=== PATIENT | female | born 1965 | race Caucasian/White ===

== ENCOUNTER 2020-08-25 09:26 | Outpatient (CLI) | payer OTHER, SELFPAY ==
--- NOTE | ~2020-08-25 | MM_ITS ---
EXAMINATION: MM screening [facility] BI w osman HISTORY: Screening mammogram TECHNIQUE: Craniocaudal and mediolateral oblique 3-D tomosynthesis images were obtained and synthetic 2-D images were generated. CAD analysis was submitted and interpreted. COMPARISON: 07/30/2019, 05/22/2018, 03/23/2017 and lateral digital screening mammogram examinations BREAST PARENCHYMAL COMPOSITION: There are scattered areas of fibroglandular density. FINDINGS: There is no evidence of suspicious mass, calcification, or architectural distortion to sugg est malignancy in either breast. There has been no suspicious interval change. IMPRESSION: 1. No mammographic evidence of malignancy. 2. Recommend routine screening mammography in one year. BI-RADS Category 1: Negative Reviewed, dictated and finalized at location A. OLEER PACKER
== END 2020-08-25 09:27 | disposition home or self-care (01) ==
PROVIDERS: PCP Family Medicine; Visit Provider Family Medicine
DX: Z12.31 Encounter for screening mammogram for malignant neoplasm of breast (principal)
CPT/HCPCS: 77063; 77067

== ENCOUNTER 2021-10-03 07:16 | Outpatient (CLI) | payer OTHER, SELFPAY ==
--- NOTE | ~2021-10-03 | MM_ITS ---
EXAMINATION: MM screening [facility] BI w osman HISTORY: Screening mammogram TECHNIQUE: Craniocaudal and mediolateral oblique 3-D tomosynthesis images were obtained and synthetic 2-D images were generated. CAD analysis was submitted and interpreted. COMPARISON: 08/25/2020, 06/30/2019, 05/22/2018 BREAST PARENCHYMAL COMPOSITION: There are scattered areas of fibroglandular density. FINDINGS: There is no evidence of suspicious mass, calcification, or architectural distortion to sugg est malignancy in either breast. There has been no suspicious interval change. IMPRESSION: 1. No mammographic evidence of malignancy. 2. Recommend routine screening mammography in one year. BI-RADS Category 1: Negative Reviewed, dictated and finalized at location A. FILLING ROOM SWEEPER
== END 2021-10-03 07:17 | disposition home or self-care (01) ==
LOC: ANHIMG 07:18
PROVIDERS: PCP Family Medicine; Visit Provider Family Medicine
DX: Z12.31 Encounter for screening mammogram for malignant neoplasm of breast (principal)
CPT/HCPCS: 77063; 77067

== ENCOUNTER 2023-02-02 10:02 | Outpatient (CLI) | payer OTHER, SELFPAY ==
--- NOTE | ~2023-02-02 | MM_ITS ---
EXAMINATION: MM screening [facility] BI w osman HISTORY: Screening mammogram TECHNIQUE: Craniocaudal and mediolateral oblique 3-D tomosynthesis images were obtained and synthetic 2-D images were generated. CAD analysis was submitted and interpreted. COMPARISON: 10/03/2020, 08/25/2020, 07/30/2019 BREAST PARENCHYMAL COMPOSITION: There are scattered areas of fibroglandular density. FINDINGS: No suspicious mass, calcification, or architectural distortion are identified in either cee ast to suggest malignancy. There has been no suspicious interval change. IMPRESSION: 1. No mammographic evidence of malignancy. 2. Recommend routine screening mammography in one year. BI-RADS Category 1: Negative Reviewed, dictated and finalized at location A.
== END 2023-02-02 10:03 | disposition home or self-care (01) ==
LOC: ANHIMG 10:06
PROVIDERS: PCP Family Medicine; Visit Provider Family Medicine
DX: Z12.31 Encounter for screening mammogram for malignant neoplasm of breast (principal)
CPT/HCPCS: 77063; 77067

== ENCOUNTER 2024-02-04 07:16 | Outpatient (CLI) | payer BC, SELFPAY ==
--- NOTE | ~2024-02-04 | MM_ITS ---
EXAMINATION: MM screening [facility] BI w osman HISTORY: Screening mammogram TECHNIQUE: Craniocaudal and mediolateral oblique 3-D tomosynthesis images were obtained and synthetic 2-D images were generated. CAD analysis was submitted and interpreted. COMPARISON: 02/02/2023, 10/03/2021 bilateral screening mammogram examinations BREAST PARENCHYMAL COMPOSITION: There are scattered areas of fibroglandular density. FINDINGS: There is no evidence of suspicious mass, calcification, or architectural distortion to sugg est malignancy in either breast. There has been no suspicious interval change. IMPRESSION: 1. No mammographic evidence of malignancy. 2. Recommend routine screening mammography in one year. BI-RADS Category 1: Negative Reviewed, dictated and finalized at location B.
== END 2024-02-04 07:17 | disposition home or self-care (01) ==
LOC: ANHIMG 07:21
PROVIDERS: PCP Family Medicine; Visit Provider Family Medicine
DX: Z12.31 Encounter for screening mammogram for malignant neoplasm of breast (principal)
CPT/HCPCS: 77063; 77067

== ENCOUNTER 2024-03-03 17:08 | Outpatient (CLI) | payer BC, SELFPAY ==
--- NOTE | ~2024-03-03 | XR_ITS ---
EXAM: XR hip RT 2V w AP pelvis DATE: 03/03/2024 17:24 HISTORY: M25.559 - Pain in unspecified X 1 YEAR . COMPARISON: None available. FINDINGS: Normal mineralization. No fracture or dislocation. No lytic or blastic lesion. Mild bilate ral superior hip joint space narrowing and subchondral sclerosis. Minimal pelvic enthesopathy. No ero sharlene or periosteal change. Soft tissues within normal limits. Pelvic phleboliths. IMPRESSION: Mild bilateral hip osteoarthritic arthritis. Reviewed, dictated and finalized at location K.
== END 2024-03-03 17:09 | disposition home or self-care (01) ==
PROVIDERS: PCP Family Medicine; Visit Provider Family Medicine
DX: M16.0 Bilateral primary osteoarthritis of hip (principal)
CPT/HCPCS: 73502

== ENCOUNTER 2024-09-19 09:44 | Outpatient (CLI) | payer BC, SELFPAY ==
[2024-09-19 18:12] LABS: Basophils Absolute Auto 0.1 K/mm3 (0.0-0.1); Eosinophils Absolute Auto 0.2 K/mm3 (0-0.3); Eosinophils Percent Auto 2.1 % (0-4.4); Hematocrit 44.9 % (37.0-47.0); Hemoglobin 14.2 g/dL (12.0-15.0); Immature Granulocyte Absolute 0.03 K/mm3 (0.00-0.031); Immature Granulocyte Percent A 0.4 % (0-0.5); Lymphocytes Absolute Auto 2.45 K/mm3 (0.9-3.2); Lymphocytes Percent Auto 30.8 % (18.3-44.2); Mean Corpuscular HGB Conc 31.6 g/dl (32-36); Mean Corpuscular Hemoglobin 29.8 pg (26-34); Mean Corpuscular Volume 94.3 fl (80-100); Mean Platelet Volume 11.5 fl (7.4-10.4); Monocytes Absolute Auto 0.5 K/mm3 (0.1-0.6); Monocytes Percent Auto 6.2 % (2.6-8.5); Neutrophils Absolute Auto 4.7 K/mm3 (1.3-6.7); Neutrophils Percent Auto 59.5 % (45.5-73.1); Platelet Count Result 314 k/mm3 (150-375); Red Blood Count 4.76 M/mm3 (4.2-5.4); Red Cell Distribution Width 13.4 % (11.5-14.5)
[2024-09-19 18:22] LABS: Alanine Aminotransferase 25 U/L (6-35); Albumin Level 4.4 g/dL (3.5-5.1); Alkaline Phosphatase 106 U/L (38-126); Anion Gap 6 mmol/L (4-12); Aspartate Amino Transferase 55 U/L (14-36); Bilirubin,Total 0.6 mg/dL (0.2-1.3); Blood Urea Nitrogen 23 mg/dL (7-17); Calcium 9.5 mg/dL (8.4-10.2); Carbon Dioxide 26 mmol/L (22-30); Chloride 107 mmol/L (98-107); Cholesterol 216 mg/dL (0-200); Estimated Glomerular Filt Rate > 60; Glucose 81 mg/dL (65-110); HDL Direct 58 mg/dL; Potassium 4.1 mmol/L (3.4-5.0); Sodium 139 mmol/L (137-145); Triglycerides 101 mg/dL (<150)
[2024-09-19 18:33] LABS: LDL Cholesterol Direct 116 mg/dL
[2024-09-19 18:34] LABS: T4 Thyroxine 7.53 ug/dL (5.53-11.0)
[2024-09-19 19:14] LABS: Vitamin B12 > 1000.0 pg/mL (239-931)
[2024-09-20 20:14] LABS: FSH 64.2 mIU/mL; LH 42.9 mIU/mL
== END 2024-09-19 09:45 | disposition home or self-care (01) ==
LOC: ANHGOSHLAB 09:45
PROVIDERS: PCP Family Medicine; Visit Provider Family Medicine
DX: R53.83 Other fatigue (principal); E53.8 Deficiency of other specified B group vitamins; R76.8 Other specified abnormal immunological findings in serum; E55.9 Vitamin D deficiency, unspecified
CPT/HCPCS: 36415; 80053; 80061; 82306; 82607; 83001; 83002; 84436; 85025

== ENCOUNTER 2025-01-20 03:15 | Day surgery (SDC) | payer BC, SELFPAY ==
[2025-01-09 08:21] VITALS: BMI 30.1
--- OUTSIDE RECORDS SUMMARY | 2025-01-20 03:18 | XMS_ITS | Encounter Summary ---
Author Organization [facility] Address [address] [facility] [facility] [place] [address] Care Team Providers Care Driver Recruiter Name Role Phone Moises Richard MD Primary Care Provider [phone] Encounter Details Date Type Department Care Team (Late st Contact Info) Description 12/06/2018 Lab Requisition [facility] Lab [address] [facility] [place] [address] Ayesha Queen MD [address] [facility] [address] [place] [address] Social History Tobacco Use Types Packs/Day Years Used Date Smoking Tobacco: Never Assessed Comments Unknown Sex and Gender Information Value Date Recorded Sex Assigned at Not on file Legal Sex Female 10:21 AM SECTION CREWS ACTIVITIES CLERK Gender Identity Not on file Sexual Orientation Not on file documented as of this encounter Plan of Treatment Not on file documented as of this encounter Procedures Procedure Name Priority Date/Time Associated Diagnosis Comments DERMATOPATHOLOGY Routine 12/05/2018 12:0 0 AM SECTION CREWS ACTIVITIES CLERK documented in this encounter Results * DERMATOPATHOLOGY (12/05/2018 12:00 AM SECTION CREWS ACTIVITIES CLERK) Case Report Dermatopathology Report Case: [id number] Authorizing Provider: Ayesha Queen MD Collected: 12/05/2018 12:00 AM Pathologist: Danielle Matute MD Received: 12/06/2018 12:01 PM Specimens: A) - Skin, right cheek B) - Skin, mid back 9 3:03 PM CDT DERMATOPATHOLOGY LABORATORY Final Diagnosis Specimen A. SKIN, right cheek: INTRADERMAL MELANOCYTIC NEVUS (D22.39) Specimen B. SKIN, mid back: INTRADERMAL MELANOCYTIC NEVUS (D22.5) 9 3:03 PM CDT DERMATOPATHOLOGY LABORATORY Clinical History A: R/O BCC vs nevus. Cane Beds papule. B: Irritated nevus R/O atypia. Irreg color, brown papule. Family H/O MM. 3:03 PM [facility] DERMATOPATHOLOGY LABORATORY Gross Description Specimen A: Received is one formalin filled container labeled with the patient's name and designated right cheek. The specimen consists of a shave measuring [id number]. Jar 0. Specimen B: Received is one formalin filled container labeled with the patient's name and designated mid back. The specimen consists of a shave measuring [id number]. Jar 0. 3:03 PM [facility] DERMATOPATHOLOGY LABORATORY Microscopic Description Specimen A. SKIN, right cheek: There are nests of cytologically bland melanocytes within the dermis that mature with depth. Specimen B. SKIN, mid back: There are nests of cytologically bland melanocytes within the dermis that mature with depth. 3:03 PM [facility] DERMATOPATHOLOGY LABORATORY Disclaimer An external and internal positive and negative controls are appropriate for the histochemical, immunohistochemical and immunofluorescence stain(s) in this case (if any), except where stated explicitly. The performance characteristics of the stain(s) cited in this report were developed and its performance characteristic determined by the Dermatopathology Laboratory at [facility], directed by Dr. Kristen Sanders. These tests need not be, and therefore are not, approved by the [place] Food and Drug Administration. The tests are used for clinical purposes. Billing Codes Specimen Charges Stain Charges 99710 [id number] 1 1 3:03 PM [facility] DERMATOPATHOLOGY LABORATORY Embedded Images 3:03 PM [facility] DERMATOPATHOLOGY LABORATORY Pathology/Cytology TISSUE SPECIMEN FROM SKIN / Unknown 12/05/2018 12/06/2018 12:01 PM SECTION CREWS ACTIVITIES CLERK Miscellaneous samples (specimen) TISSUE SPECIMEN FROM SKIN / Unknown 12/05/2018 12/06/2018 12:01 PM SECTION CREWS ACTIVITIES CLERK us Ayesha Queen MD LAB - PATHOLOGY/CYTOLOGY ORD ERABLES Final Result DERMATOPATHOLOGY LABORATORY [facility] - Department of Dermatology [address] [place] [address], [facility] [phone] documented in this encounter Visit Diagnoses Not on filedocumented in this encounter Care Teams Driver Recruiter Relationship Specialty Start Date End Date Moises Richard MD [facility] [place] [address] PCP - General 12/05/18 documented as of this encounter
--- OUTSIDE RECORDS SUMMARY | 2025-01-20 03:18 | XMS_ITS | Clinical Summary ---
Author Organization [facility] Address [address] [place] [address] Care Team Providers Care Dry Wall Plasterer Name Role Phone Moises Richard MD Primary Care Provider [phone]- [phone] Source Comments [facility] [employer],non-owned Affiliates and Associated Physician Practices is amultiple site organization consisting of ambulatory clinics and hospital sitesin [place], [place], [place] and [place]. This disclosure is being madepursuant to the Care Everywhere program and may not contain all information available regarding this patient. Last updated 18.[facility] [employer] Social History Tobacco Use Types Packs/Day Years Used Date Smoking Tobacco: Never Assessed Comments Unknown Sex and Gender Information Value Date Recorded Sex Assigned at Not on file Legal Sex Female 10:21 AM PRACTICING UROLOGIST Gender Identity Not on file Sexual Orientation Not on file Plan of Treatment Health Maintenance Due Date Last Done Comments COLOGUARD (AGES 45-75) - COL ON CA SCREENING 1967 COLON MONITORING 1967 COLONOSCOPY - COLON CA SCREENING 1967 CT COLONOGRAPHY - COLON CA SCREENING 1967 Colorectal Cancer Screening 1967 FIT - COLON CA SCREENING 1967 FLEX SIG - COLON CA SCREENING 1967 LIPID TESTING 1967 MAMMOGRAM 1967 PAP SMEAR 1967 HIV SCREENING 1982 HEPATITIS C SCREENING 07/15/1985 DTAP/TDAP/TD VACCINES (1 - Tdap) 1986 HEPATITIS B VACCINE (1 of 3 - 19+ 3-dose series) 1986 PNEUMOCOCCAL VACCINE 50+ (1 of 1 - PCV) 2017 ZOSTER VACCINE (1 of 2) 2017 COVID-19 VACCINE (2023-2 5 season) 2024 DEPRESSION SCREENING 10/01/2024 INFLUENZA VACCINE (Season Ended) 2025 HIB VACCINE Aged Out No longer eligi ble based on patient's age to complete this topic HPV VACCINE Aged Out No longer eligi ble based on patient's age to complete this topic MENINGOCOCCAL (Group B) VACC INE SHARED DECISION-MAKING Aged Out No longer eligibl e based on patient's age to complete this topic MENINGOCOCCAL GROUPS A/C/Y/W VACCINE Aged Out No longer eligible b ased on patient's age to complete this topic PNEUMOCOCCAL VACCINE Aged Out No long er eligible based on patient's age to complete this topic Insurance [facility] Care Teams Dry Wall Plasterer Relationship Specialty Start Date End Date Moises Richard MD [address] [place] [address] PCP - General 12/05/18
--- OUTSIDE RECORDS SUMMARY | 2025-01-20 03:18 | XMS_ITS | Clinical Summary ---
Author Organization [facility] Address [address], [address] [address] Phone Care Team Providers Care Vice Chairman Name Role Phone Moises Richard MD Primary Care Provider [phone]- [phone] Juan Mancuso DO Unavailable [phone] Allergies Active Allergy Reactions Criticality Noted Date Comments Fluconazole Unknown 01/21/2016 Erythromycin Unknown 01/21/2016 Morphine Unknown 01/21/2016 Sulfa Antibiotics Unknown 01/21/2016 Medications ibuprofen (MOTRIN) 600 MG Tablet Take 600 mg by mouth as needed. Active Pseudoephedrine HCl (SUDAFED PO) Take by mouth as needed. Active ranitidine (ZANTAC) 300 MG Tablet Take 300 mg by mouth as needed for Heartburn. Active Social History Tobacco Use Types Packs/Day Years Used Date Smoking Tobacco: Never Assessed Comments Unknown Sex and Gender Information Value Date Recorded Sex Assigned at Not on file Legal Sex Female 5:39 PM CDT Gender Identity Not on file Sexual Orientation Not on file Plan of Treatment Health Maintenance Due Date Last Done Comments Hepatitis C Virus (HCV) Screening 1967 TdaP Immunization 1967 Hepatitis B Immunization (1 of 3 - 19+ 3-dose series) 1986 Pap Smear 1988 Cervical Cancer Screening (CCS) 1997 HPV/Cotest 1997 Cologuard 2017 Immunochemical Fecal Occult Blood 2017 Mammogram 2017 Pneumococcal Immunization (5 0+ years) (1 of 1 - PCV) 2017 Zoster Immunization (1 of 2) 2017 Influenza Immunization (#1) 2024 SARS-COV-2 Immunization ( season) 2024 Colonoscopy 01/19/2026 01/20/2016 Colorectal Cancer Screening 01/19/2026 Respiratory Syncytial Virus (RSV) Immunization (Adult) (1 - 1-dose 75+ series) 2042 01/20/2016 Meningococcal Immunization (ACWY) Aged Out No longer eligible based on patient's age to complete this topic Pneumococcal Immunization Combined Aged Out No longer eligible based on patient's age to complete this topic Rotavirus Immunization Aged Out No lo nger eligible based on patient's age to complete this topic Procedures Procedure Name Priority Date/Time Associated Diagnosis Comments COLONOSCOPY Routine 01/20/2016 from Last 3 Months or Most Recently Relevant to Health Maintenance Results * HM COLONOSCOPY (01/20/2016) us Moises Richard MD PROCEDURE/MINOR SURGICAL O RDERABLES Final Result from Last 3 Months or Most Recently Relevant to Health Maintenance Care Teams Vice Chairman Relationship Specialty Start Date End Date Moises Richard MD [address] [place] [address] [employer] [address] [place], [place] [id number] PCP - General Family Medicine 01/31/16 Juan Mancuso DO [address] [place] [address] [employer] [address] [place] [address] Gastroenterology 01/31/16
--- NOTE | 2025-01-20 06:39 | P.PNAN_ITS ---
Anes - Initial Pre Proc Eval Procedure: Operation Date: 01/20/25 07:30 Proposed Procedures p Colonoscopy - Jordy Flannery MD Date/Time: 01/20/25 06:39 Surgeon: Jordy Flannery MD Pre Op Diagnosis: screening malignant neoplasm of colon Patient Data Age: 59 Gender: F Height: 1.6 m Weight: 74.3 kg Allergies Allergy/AdvReac Type Severity Reaction Status Date / Time adhesive Allergy Severe BLISTERS Verified 01/20/25 06:36 TO TAPE avocado Allergy Severe Hives Verified 01/20/25 06:36 erythromycin base Allergy Unknown Unknown Verified 01/20/25 06:36 fluconazole Allergy Unknown allergic Verified 01/20/25 06:36 gluten Allergy Unknown stomach Verified 01/20/25 06:36 pains morphine Allergy Unknown Unknown Verified 01/20/25 06:36 Sulfa (Sulfonamide Allergy Unknown Unknown Verified 01/20/25 06:36 Antibiotics) sulfanilamide Allergy Unknown Unknown Verified 01/20/25 06:36 Home Medications ?Medication ?Instructions ?Recorded ?Confirmed ?Type cholecalciferol (vitamin D3) 25 25 mcg PO DAILY 08/24/21 01/20/25 History mcg (1,000 unit) capsule mecobalamin (vitamin B12) 1,000 1,000 mcg sublingual DAILY 08/24/21 01/20/25 History mcg disintegrating tablet,sublingual Patient hx anesthesia problems: none Family hx anesthesia problems: none Results Review: All pre-operative results and documents have been reviewed as part of the pre- operative evaluation. [facility] Past Medical History Medical History (Updated 01/20/25 @ 06:40 by Kareem Reese MD) MICHELLE positive neg JACQUES BPV (benign positional vertigo) Surgical History Surgical History S/P carpal tunnel release left H/O: hysterectomy (~2008) has Ovaries History of (~1998) History of (~2000) S/P cholecystectomy (~12/17/94) Family History Family History Mother Family history of thyroid disease Hypertension Family history of cardiovascular disease Father Diabetes mellitus Hypertension Family history of cardiovascular disease Sibling Diabetes mellitus Depression Hypertension Family history of malignant melanoma Hudson's disease Anxiety Cerebrovascular accident History of high cholesterol Grandparent Family history of malignant neoplasm Family history of malignant melanoma Other Family history of alcoholism Family history of arthritis Family history of malignant neoplasm of bone Family history of mental disorder Social History Social History Smoking status: Never smoker Alcohol intake: never Substance use: never Substance use type: does not use Lack of Transportation: No Lack of Food: Never True Current Housing: I Have Housing Concerned About Future Housing: No Difficulty Paying Gas/Electric Bills: No Difficulty Paying for Meds: No Currently Unemployed: No Education: Master's Degree or Higher Difficulty w/ Childcare or Family Care: No Living arrangements: with family Spiritual care concerns: No Anes - Eval Final PreProcedure Day of Procedure 01/20/25 06:39 Patient weight: overweight Heart: regular rate and rhythm Lungs: clear to auscultation Airway: Mallampati scale class II Neurological: alert and oriented Last oral intake: >/= 8 hours ASA classification: II Emergent: no Anesthetic plan: proceed Anesthesia type and monitoring: general GIVS and standard monitoring Results Review: All pre-operative results and documents have been reviewed as part of the pre- operative evaluation. Informed Consent: The patient's anesthetic plan and its attendant risks and benefits were discussed with the patient/family/POA. Questions were solicited and answers provided to the satisfaction of the patient/family/POA.
[2025-01-20] MEDS: LACTATED RINGERS 1,000 ML 150 ML IV CONT (06:45)
[2025-01-20 06:52] VITALS: BP 117/67; PULSE 69; RESP 18; TEMP 36.7; O2SAT 100
--- NOTE | 2025-01-20 07:21 | PM.IMHP ---
H&P: HPI History of Present Illness Date/Time: 01/20/25 07:21 Chief Complaint: Screening colonoscopy Narrative: This is the patient's first colonoscopy. There are no GI symptoms and there is no family history of colorectal cancer. Review of Systems Review of Systems: All systems reviewed & are unremarkable except as noted in HPI and below PMFSH Past Medical History Medical History (Updated 01/20/25 @ 06:40 by Kareem Reese MD) MICHELLE positive neg JACQUES BPV (benign positional vertigo) Surgical History Surgical History S/P carpal tunnel release left H/O: hysterectomy (~2008) has Ovaries History of (~1998) History of (~2000) S/P cholecystectomy (~12/17/94) Family History Family History Mother Family history of thyroid disease Hypertension Family history of cardiovascular disease Father Diabetes mellitus Hypertension Family history of cardiovascular disease Sibling Diabetes mellitus Depression Hypertension Family history of malignant melanoma Hudson's disease Anxiety Cerebrovascular accident History of high cholesterol Grandparent Family history of malignant neoplasm Family history of malignant melanoma Other Family history of alcoholism Family history of arthritis Family history of malignant neoplasm of bone Family history of mental disorder Social History Social History Smoking status: Never smoker Alcohol intake: never Substance use: never Substance use type: does not use Lack of Transportation: No Lack of Food: Never True Current Housing: I Have Housing Concerned About Future Housing: No Difficulty Paying Gas/Electric Bills: No Difficulty Paying for Meds: No Currently Unemployed: No Education: Master's Degree or Higher Difficulty w/ Childcare or Family Care: No Living arrangements: with family Spiritual care concerns: No Meds Home Medications and Allergies Home Medications ?Medication ?Instructions ?Recorded ?Confirmed ?Type cholecalciferol (vitamin D3) 25 25 mcg PO DAILY 08/24/21 01/20/25 History mcg (1,000 unit) capsule mecobalamin (vitamin B12) 1,000 1,000 mcg sublingual DAILY 08/24/21 01/20/25 History mcg disintegrating tablet,sublingual Allergies Allergy/AdvReac Type Severity Reaction Status Date / Time adhesive Allergy Severe BLISTERS Verified 01/20/25 06:36 TO TAPE avocado Allergy Severe Hives Verified 01/20/25 06:36 erythromycin base Allergy Unknown Unknown Verified 01/20/25 06:36 fluconazole Allergy Unknown allergic Verified 01/20/25 06:36 gluten Allergy Unknown stomach Verified 01/20/25 06:36 pains morphine Allergy Unknown Unknown Verified 01/20/25 06:36 Sulfa (Sulfonamide Allergy Unknown Unknown Verified 01/20/25 06:36 Antibiotics) sulfanilamide Allergy Unknown Unknown Verified 01/20/25 06:36 Vital Signs Vital Signs - 24 hr 01/20/25 06:52 Temperature 98.0 F Pulse Rate 69 Respiratory Rate 18 Blood Pressure 117/67 Pulse Oximetry 100 Oxygen Delivery Room Air Exam Const: General: cooperative and healthy appearing Resp: Effort & Inspection: normal respiratory effort and able to speak in complete sentences Auscultation: clear to auscultation bilaterally Cardio: Rate: regular rate Rhythm: regular rhythm GI: Inspection: normal to inspection GI Palp: No No hepatosplenomegaly present Auscultation: normal bowel sounds Rectal Exam: deferred Skin: General skin exam: normal color Psych: Appearance: grossly normal Mental Status: mental status grossly normal Assessment and Plan Assessment and plan (1) Colon cancer screening: Code(s): Z12.11 - Encounter for screening for malignant neoplasm of colon Status: Acute Assessment and Plan: The patient is deemed a good candidate for the procedure. Consent signed. Will proceed.
[2025-01-20 07:49] VITALS: BP 109/65; PULSE 75; RESP 18; O2SAT 99
[2025-01-20 07:59] VITALS: BP 113/70; PULSE 70; RESP 17; O2SAT 100
[2025-01-20 08:09] VITALS: BP 108/69; PULSE 70; RESP 17; O2SAT 100
== END 2025-01-20 08:28 | disposition home or self-care (01) ==
PROVIDERS: PCP Family Medicine; Referring Provider Family Medicine; Visit Provider Internal Medicine Gastroenterology
PROC: 0DJD8ZZ Inspection of Lower Intestinal Tract, Via Natural or Artificial Opening Endoscopic (ICD-10-PCS; CPT 45378; principal; 2025-01-20 07:30)
DX: Z12.11 Encounter for screening for malignant neoplasm of colon (principal); D12.5 Benign neoplasm of sigmoid colon
CPT/HCPCS: 45385; 88305; J2003; J2704; J7120

== ENCOUNTER 2025-01-28 08:49 | Outpatient (CLI) | payer BC, SELFPAY ==
--- OUTSIDE RECORDS SUMMARY | 2025-01-28 09:22 | XMS_ITS | Clinical Summary ---
Author Organization [facility] Address [address] [facility] [place] [address] Care Team Providers Care Obstetrics Gynecology Physician Name Role Phone Moises Richard MD Primary Care Provider [phone] Source Comments [facility],non-owned Affiliates and Associated Physician Practices is amultiple site organization consisting of ambulatory clinics and hospital sitesin [place], [place], [place] and [place]. This disclosure is being madepursuant to the Care Everywhere program and may not contain all information available regarding this patient. Last updated 18.[facility] [employer] Social History Tobacco Use Types Packs/Day Years Used Date Smoking Tobacco: Never Assessed Comments Unknown Sex and Gender Information Value Date Recorded Sex Assigned at Not on file Legal Sex Female 10:21 AM COPRA SAMPLER Gender Identity Not on file Sexual Orientation [...] patient's age to complete this topic Insurance [facility] SELF PAY NO INSURANCE Member Subscriber Plan / Payer (Ef fective for All Dates) Name:Desiree Culver Member ID:Not on file Relation to Subscriber:Not on file Name:DESIREE CULVER Subscriber ID:Not on file (Home) Address: [address] [place] [id number] Payer ID:Not on file Group ID:Not on file Type:Self Pay Address: [place], [place] Care Teams Obstetrics Gynecology Physician Relationship Specialty Start Date End Date Moises Richard MD [address] [place] [id number] PCP - General 12/05/18
--- OUTSIDE RECORDS SUMMARY | 2025-01-28 09:22 | XMS_ITS | Clinical Summary ---
Author Organization [facility] Address [address], [address] [address] Phone Care Team Providers Care Business Services Sales Agent Name Role Phone Moises Richard MD Primary Care Provider [phone]- [phone] Juan Mancuso DO Unavailable [phone] Allergies Active Allergy Reactions Criticality Noted [...] Recently Relevant to Health Maintenance Care Teams Business Services Sales Agent Relationship Specialty Start Date End Date Moises Richard MD [address] [place] [address] [employer] [address] [place], [place] [phone] PCP - General Family Medicine 01/31/16 Juan Mancuso DO [address] [place] [address] [employer] [address] [place] [address] Gastroenterology 01/31/16
--- OUTSIDE RECORDS SUMMARY | 2025-01-28 09:22 | XMS_ITS | Encounter Summary ---
Author Organization [facility] Address [address] [facility] [address] Care Team Providers Care Oven Builder Name Role Phone Moises Richard MD Primary Care Provider +1- [phone] Encounter Details Date Type Department Care Team (Late st Contact Info) Description 12/06/2018 Lab Requisition [facility] Care DermPath Lab [address] [facility], [place] [phone] Ayesha Queen MD [address] [facility] [address] [place] [address] Social History Tobacco Use Types Packs/Day Years Used Date Smoking Tobacco: Never Assessed Comments Unknown Sex and Gender Information Value Date Recorded Sex Assigned at Not on file Legal Sex Female 10:21 AM CUSTOMER SERVICE OPERATOR Gender Identity Not on file Sexual Orientation Not on file documented as of this encounter Plan of Treatment Not on file documented as of this encounter Procedures Procedure Name Priority Date/Time Associated Diagnosis Comments DERMATOPATHOLOGY Routine 12/05/2018 12:0 0 AM CUSTOMER SERVICE OPERATOR documented in this encounter Results * DERMATOPATHOLOGY (12/05/2018 12:00 AM CUSTOMER SERVICE OPERATOR) Case Report Dermatopathology Report Case: [id number] Authorizing Provider: Ayesha Queen MD Collected: 12/05/2018 [...] Clinical History A: R/O BCC vs nevus. [place] papule. B: Irritated nevus R/O atypia. Irreg color, brown papule. Family H/O MM. 3:03 PM [facility] DERMATOPATHOLOGY [facility]ORAT[facility] Gross Description Specimen A: Received is one formalin filled container labeled with the patient's name and designated right cheek. The specimen consists of a shave measuring [id number]. Jar 0. Specimen B: Received is one formalin filled container labeled with the patient's name and designated mid back. The specimen consists of a shave measuring 1s4c6vu. Jar 0. 3:03 PM [facility] DERMATOPATHOLOGY [facility]OR[facility] Microscopic Description Specimen A. SKIN, right cheek: There are nests of cytologically bland melanocytes within the dermis that mature with depth. Specimen B. SKIN, mid back: There are nests of cytologically bland melanocytes within the dermis that mature with depth. 3:03 PM [facility] DERMAT[facility] Disclaimer An external and internal positive and negative controls are appropriate for the histochemical, immunohistochemical and immunofluorescence stain(s) in this case (if any), except where stated explicitly. The performance characteristics of the stain(s) cited in this report were developed and its performance characteristic determined by the Dermatopathology Laboratory at [facility], directed by Dr. Kristen Sanders. These tests need not be, and therefore are not, approved by the [place] Food and Drug Administration. The tests are used for clinical purposes. Billing Codes Specimen Charges Stain Charges 71181 72692 1 1 3:03 PM T DERMATOPATHOLOGY LABORATORY Embedded Images 3:03 PM [facility] DERMAT[facility] Pathology/Cytology TISSUE SPECIMEN FROM SKIN / Unknown 12/05/2018 12/06/2018 12:01 PM CUSTOMER SERVICE OPERATOR Miscellaneous samples (specimen) TISSUE SPECIMEN FROM SKIN / Unknown 12/05/2018 12/06/2018 12:01 PM CUSTOMER SERVICE OPERATOR us Ayesha Queen MD LAB - PATHOLOGY/CYTOLOGY ORD ERABLES Final Result DERMATOPATHOLOGY LABORATORY [facility] - Department of Dermatology [address] [facility], 5th [place] [address], [facility] [phone] documented in this encounter Visit Diagnoses Not on filedocumented in this encounter Care Teams Oven Builder Relationship Specialty Start Date End Date Moises Richard MD [facility] [place] [address] PCP - General 12/05/18 documented as of this encounter
--- NOTE | 2025-01-28 11:00 | NEURO_ITS ---
Impression: # Complains of numbness and discomfort of hands. ? # Normal Nerve Conduction Study. ? # No Carpal Tunnel Syndrome or ulnar neuropathy. ? # Normal Needle/EMG exam. ? # Clinical correlation recommended. ?Nerve Conduction Studies Anti Sensory Summary Table ?Stim Site NR Peak (ms) P-T Amp (?V) Site1 Site2 Delta-P (ms) Dist (cm) Reggie (m/s) Left Median Anti Sensory (2-3nd Digit) Wrist ? 2.9 54.9 Wrist 2-3nd Digit 2.9 14.0 48 Wrist ? 2.8 69.6 Wrist 2-3nd Digit 2.9 14.0 48 Right Median Anti Sensory (2-3nd Digit) Wrist ? 2.3 74.2 Wrist 2-3nd Digit 2.3 14.0 61 Wrist ? 2.3 71.6 Wrist 2-3nd Digit 2.3 14.0 61 Left Radial Anti Sensory (Base 1st Digit) Wrist ? 1.8 18.5 Wrist Base 1st Digit 1.8 0.0 Right Radial Anti Sensory (Base 1st Digit) Wrist ? 1.7 39.1 Wrist Base 1st Digit 1.7 0.0 Left Ulnar Anti Sensory (5th Digit) Wrist ? 2.2 66.6 Wrist 5th Digit 2.2 14.0 64 Right Ulnar Anti Sensory (5th Digit) Wrist ? 2.1 54.4 Wrist 5th Digit 2.1 14.0 67 Motor Summary Table ?Stim Site NR Onset (ms) O-P Amp (mV) Site1 Site2 Delta-0 (ms) Dist (cm) Reggie (m/s) Left Median Motor (Abd Poll Brev) Wrist ? 2.9 1.9 Elbow Wrist 4.5 27.0 60 Elbow ? 7.4 2.0 Right Median Motor (Abd Poll Brev) Wrist ? 2.7 5.4 Elbow Wrist 4.3 27.0 63 Elbow ? 7.0 6.6 Left Ulnar Motor (Abd Dig Minimi) Wrist ? 2.3 8.0 A Elbow Wrist 4.2 27.0 64 A Elbow ? 6.5 7.7 B Elbow Wrist 3.2 20.0 63 B Elbow ? 5.5 5.8 Right Ulnar Motor (Abd Dig Minimi) Wrist ? 2.0 8.1 A Elbow Wrist 4.5 29.0 64 A Elbow ? 6.5 6.9 B Elbow Wrist 3.2 20.0 63 B Elbow ? 5.2 6.4 F Wave Studies ?NR F-Lat (ms) L-R F-Lat (ms) Left Median (Mrkrs) (Abd Poll Brev) ? 26.41 1.14 Right Median (Mrkrs) (Abd Poll Brev) ? 25.26 1.14 Left Ulnar (Mrkrs) (Abd Dig Min) ? 24.45 0.55 Right Ulnar (Mrkrs) (Abd Dig Min) ? 25.00 0.55 EMG ?Side Muscle Nerve Root Ins Act Fibs Amp Dur Recrt Comment Right 1stDorInt Ulnar C8-T1 Nml Nml Nml Nml Nml Right Ext Indicis Radial (Post Int) C7-8 Nml Nml Nml Nml Nml Right Ext Digitorum Radial (Post Int) C7-8 Nml Nml Nml Nml Nml Right BrachioRad Radial C5-6 Nml Nml Nml Nml Nml Right PronatorTeres Median C6-7 Nml Nml Nml Nml Nml Right Abd Poll Brev Median C8-T1 Nml Nml Nml Nml Nml Right ABD Dig Min Ulnar C8-T1 Nml Nml Nml Nml Nml Right FlexPolLong Median (Ant Int) C7-8 Nml Nml Nml Nml Nml Right Abd Poll Long Radial (Post Int) C7-8 Nml Nml Nml Nml Nml Left 1stDorInt Ulnar C8-T1 Nml Nml Nml Nml Nml Left Ext Indicis Radial (Post Int) C7-8 Nml Nml Nml Nml Nml Left Ext Digitorum Radial (Post Int) C7-8 Nml Nml Nml Nml Nml Left BrachioRad Radial C5-6 Nml Nml Nml Nml Nml Left PronatorTeres Median C6-7 Nml Nml Nml Nml Nml Left Abd Poll Brev Median C8-T1 Nml Nml Nml Nml Nml Left ABD Dig Min Ulnar C8-T1 Nml Nml Nml Nml Nml Left FlexPolLong Median (Ant Int) C7-8 Nml Nml Nml Nml Nml Left Abd Poll Long Radial (Post Int) C7-8 Nml Nml Nml Nml Nml MTDD
== END 2025-01-28 08:50 | disposition home or self-care (01) ==
PROVIDERS: PCP Family Medicine; Visit Provider Family Medicine
DX: G56.00 Carpal tunnel syndrome, unspecified upper limb (principal); R20.2 Paresthesia of skin
CPT/HCPCS: 95886; 95911

== ENCOUNTER 2025-02-12 07:34 | Outpatient (CLI) | payer BC, SELFPAY ==
--- NOTE | ~2025-02-12 | MM_ITS ---
EXAMINATION: MM screening toño BI w osman HISTORY: Screening TECHNIQUE: Craniocaudal and mediolateral oblique 3-D tomosynthesis images were obtained and synthetic 2-D images were generated. CAD analysis was submitted and interpreted. COMPARISON: Comparison to multiple prior studies sequentially, with oldest reviewed study dated 05/22. BREAST PARENCHYMAL COMPOSITION: Not dense: There are scattered areas of fibroglandular density. FINDINGS: There is no evidence of suspicious mass, calcification, or architectural distortion to sugg est malignancy in either breast. There has been no suspicious interval change. IMPRESSION: 1. No mammographic evidence of malignancy. 2. Recommend routine screening mammography in one year. BI-RADS Category 1: Negative Reviewed, dictated and finalized at location A.
--- OUTSIDE RECORDS SUMMARY | 2025-02-12 07:39 | XMS_ITS | Clinical Summary ---
Author Organization [facility] Address [address] [facility] [place] [address] Care Team Providers Care Heavy Duty Mechanic Name Role Phone Moises Richard MD Primary Care Provider +1- [phone] Source Comments [facility],non-owned Affiliates and Associated Physician Practices is amultiple site organization consisting of ambulatory clinics and hospital sitesin [place], [place], [place] and [place]. This disclosure is being madepursuant to the Care Everywhere program and may not contain all information available regarding this patient. Last updated 18.[facility] Social History Tobacco Use Types Packs/Day Years Used Date Smoking Tobacco: Never Assessed Comments Unknown Sex and Gender Information Value Date Recorded Sex Assigned at Not on file Legal Sex Female 10:21 AM AIR TRAFFIC CONTROL SUPERVISOR Gender Identity Not on file Sexual Orientation [...] VACCINE (1 of 2) 2017 COVID-19 VACCINE ( - 2023-2 5 season) 2024 DEPRESSION SCREENING 10/01/2024 INFLUENZA [...] patient's age to complete this topic Insurance ANTH Care Teams Heavy Duty Mechanic Relationship Specialty Start Date End Date Moises Richard MD [address] [place] [phone] PCP - General 12/05/18
--- OUTSIDE RECORDS SUMMARY | 2025-02-12 07:39 | XMS_ITS | Encounter Summary ---
Author Organization [facility] Address [address] [facility] [place] [address] Care Team Providers Care Teleradiologist Name Role Phone Moises Richard MD Primary Care Provider +1- [phone] Encounter Details Date Type Department Care Team (Late st Contact Info) Description 12/06/2018 Lab Requisition [facility] Care DermPath Lab [address] [facility] [place] [address] Ayesha Queen MD [address] [facility] [address] [place] [address] Social History Tobacco Use Types Packs/Day Years Used Date Smoking Tobacco: Never Assessed Comments Unknown Sex and Gender Information Value Date Recorded Sex Assigned at Not on file Legal Sex Female 10:21 AM ANESTHESIOLOGY MEDICAL DOCTOR Gender Identity Not on file Sexual Orientation Not on file documented as of this encounter Plan of Treatment Not on file documented as of this encounter Procedures Procedure Name Priority Date/Time Associated Diagnosis Comments DERMATOPATHOLOGY Routine 12/05/2018 12:0 0 AM ANESTHESIOLOGY MEDICAL DOCTOR documented in this encounter Results * DERMATOPATHOLOGY (12/05/2018 12:00 AM ANESTHESIOLOGY MEDICAL DOCTOR) Case Report Dermatopathology Report Case: [id number] Authorizing Provider: Ayesha Queen MD Collected: 12/05/2018 12:00 AM Pathologist: Danielle Matute MD Received: 12/06/2018 12:01 PM Specimens: A) - Skin, right cheek B) - Skin, mid back 9 3:03 PM CDT DERMATOPATHOLOGY LABORATORY Final Diagnosis Specimen A. SKIN, right cheek: INTRADERMAL MELANOCYTIC NEVUS (D22.39) Specimen B. SKIN, mid back: INTRADERMAL MELANOCYTIC NEVUS (D22.5) 3:03 PM T DERMATOPATHOLOGY LABORATORY Clinical History A: R/O BCC vs nevus. [address] papule. B: Irritated nevus R/O atypia. Irreg color, brown papule. Family H/O MM. 3:03 PM T DERMATOPATHOLOGY LABORATORY Gross Description Specimen A: Received is one formalin filled container labeled with the patient's name and designated right cheek. The specimen consists of a shave measuring 2s2c1fs. Jar 0. Specimen B: Received is one formalin filled container labeled with the patient's name and designated mid back. The specimen consists of a shave measuring 9t5r8fl. Jar 0. 3:03 PM T DERMATOPATHOLOGY LABORATORY Microscopic Description Specimen A. SKIN, right cheek: There are nests of cytologically bland melanocytes within the dermis that mature with depth. Specimen B. SKIN, mid back: There are nests of cytologically bland melanocytes within the dermis that mature with depth. 3:03 PM CDT DERMATOPATHOLOGY LABORATORY Disclaimer An external and internal positive and negative controls are appropriate for the histochemical, immunohistochemical and immunofluorescence stain(s) in this case (if any), except where stated explicitly. The performance characteristics of the stain(s) cited in this report were developed and its performance characteristic determined by the Dermatopathology Laboratory at [facility], directed by Dr. Kristen Sanders. These tests need not be, and therefore are not, approved by the [place] Food and Drug Administration. The tests are used for clinical purposes. Billing Codes Specimen Charges Stain Charges 62542 31874 1 1 3:03 PM CDT DERMATOPATHOLOGY LABORATORY Embedded Images 3:03 PM T DERMATOPATHOLOGY LABORATORY Pathology/Cytology TISSUE SPECIMEN FROM SKIN / Unknown 12/05/2018 12/06/2018 12:01 PM ANESTHESIOLOGY MEDICAL DOCTOR Miscellaneous samples (specimen) TISSUE SPECIMEN FROM SKIN / Unknown 12/05/2018 12/06/2018 12:01 PM ANESTHESIOLOGY MEDICAL DOCTOR us Ayesha Queen MD LAB - PATHOLOGY/CYTOLOGY ORD ERABLES Final Result DERMATOPATHOLOGY LABORATORY [facility] - Department of Dermatology [address] [place] [address], 5th Floor Lab [address] [phone] documented in this encounter Visit Diagnoses Not on filedocumented in this encounter Care Teams Teleradiologist Relationship Specialty Start Date End Date Moises Richard MD [address] [place] [address] PCP - General 12/05/18 documented as of this encounter
--- OUTSIDE RECORDS SUMMARY | 2025-02-12 07:39 | XMS_ITS | Clinical Summary ---
Author Organization [facility] Address [address], [address] [address] Phone Care Team Providers Care Hotel Server Name Role Phone Moises Richard MD Primary Care Provider +1- [phone] Juan Mancuso DO Unavailable [phone] Allergies Active Allergy Reactions Criticality Noted Date [...] Recently Relevant to Health Maintenance Care Teams Hotel Server Relationship Specialty Start Date End Date Moises Richard MD [address] [place] [address] [address] [place] [address] PCP - General Family Medicine 01/31/16 Juan Mancuso DO [address] [place] [address] [address] [place] [address] Gastroenterology 01/31/16
== END 2025-02-12 07:35 | disposition home or self-care (01) ==
LOC: ANHIMG 07:36
PROVIDERS: PCP Family Medicine; Visit Provider Family Medicine
DX: Z12.31 Encounter for screening mammogram for malignant neoplasm of breast (principal)
CPT/HCPCS: 77063; 77067

== ENCOUNTER 2025-05-04 15:59 | Emergency (ER) | payer BC, SELFPAY ==
--- OUTSIDE RECORDS SUMMARY | 2025-05-04 16:01 | XMS_ITS | Clinical Summary ---
Author Organization [facility] Address [address], [address] [address] Phone Care Team Providers Care Mason Helper Name Role Phone Moises Richard MD Primary Care Provider [phone]- [phone] Juan Mancuso DO Unavailable [phone] Allergies Active Allergy Reactions Criticality Noted [...] Cancer Screening (CCS) 1997 HPV/Cotest 1997 Cologuard 2012 Immunochemical Fecal Occult Blood 2012 Pneumococcal Immunization (5 0+ years) (1 of 1 - PCV) 2017 Zoster Immunization (1 of 2) 2017 SARS-COV-2 Immunization ( season) 2024 Influenza Immunization (#1) 2025 Colonoscopy 01/19/2026 01/20/2016 Colorectal Cancer Screening 01/19/2026 Respiratory Syncytial Virus (RSV) Immunization (Adult) (1 - 1-dose 75+ series) 2042 Human Papillomavirus (HPV) Immunization Aged Out No longer eligible b ased on patient's age to complete this topic Meningococcal Immunization (ACWY) Aged Out No longer eligible based on patient's age to complete this topic Rotavirus Immunization Aged Out No lo nger eligible based on patient's age to complete this topic Procedures Procedure Name Priority Date/Time Associated Diagnosis Comments COLONOSCOPY Routine 01/20/2016 from Last 3 Months or Most Recently Relevant to Health Maintenance Results * COLONOSCOPY (01/20/2016) Moises Richard MD PROCEDURE/MINOR SURGICAL O RDERABLES Final Result from Last 3 Months or Most Recently Relevant to Health Maintenance Care Teams Mason Helper Relationship Specialty Start Date End Date Moises Richard MD [address] [place] [address] [employer] [address] [place] [address] PCP - General Family Medicine 01/31/16 Juan Mancuso DO [address] [place] [address] [employer] [address] [place] [address] Gastroenterology 01/31/16
--- OUTSIDE RECORDS SUMMARY | 2025-05-04 16:01 | XMS_ITS | Clinical Summary ---
Author Organization [email or web address] Address [address] [place] [address] Care Team Providers Care One Piece Expansion Maker Hand Name Role Phone Moises Richard MD Primary Care Provider [phone]- [phone] Source Comments [email or web address]),non-owned Affiliates and Associated Physician Practices is amultiple site organization consisting of ambulatory clinics and hospital sitesin [place], [place], [place] and [place]. This disclosure is being madepursuant to the Care Everywhere program and may not contain all information available regarding this patient. Last updated 18.[email or web address] Social History Tobacco Use Types Packs/Day Years Used Date Smoking Tobacco: Never Assessed Comments Unknown Sex and Gender Information Value Date Recorded Sex Assigned at Not on file Legal Sex Female 10:21 AM NETWORK SUPPORT Gender Identity Not on file Sexual Orientation [...] SCREENING 1967 LIPID TESTING 1967 MAMMOGRAM 1967 HIV SCREENING 1982 HEPATITIS C SCREENING 07/15/1985 DTAP/TDAP/TD VACCINES (1 - Tdap) 1986 HEPATITIS B VACCINE (1 of 3 - 19+ 3-dose series) 1986 PAP SMEAR 1988 PNEUMOCOCCAL VACCINE 50+ (1 of 1 - PCV) 2017 ZOSTER VACCINE (1 of 2) 2017 COVID-19 VACCINE ( - 2023-2 5 season) 2024 DEPRESSION SCREENING 10/01/2024 INFLUENZA VACCINE (#1) 2025 HIB VACCINE Aged Out No longer [...] complete this topic Insurance ANTH Care Teams One Piece Expansion Maker Hand Relationship Specialty Start Date End Date Moises Richard MD [address] [place] [phone] PCP - General 12/05/18
--- OUTSIDE RECORDS SUMMARY | 2025-05-04 16:01 | XMS_ITS | Encounter Summary ---
Author Organization [facility] Address [address] [facility] [address] Care Team Providers Care Coupon Clerk Name Role Phone Moises Richard MD Primary Care Provider [phone]- [phone] Encounter Details Date Type Department Care Team (Late st Contact Info) Description 12/06/2018 Lab Requisition [facility] Care DermPath Lab [address] [facility] [place] [phone] Ayesha Queen MD [address] [facility] [address] [place] [address] Social History Tobacco Use Types Packs/Day Years Used Date Smoking Tobacco: Never Assessed Comments Unknown Sex and Gender Information Value Date Recorded Sex Assigned at Not on file Legal Sex Female 10:21 AM MEDICAL UNDERWRITER Gender Identity Not on file Sexual Orientation Not on file documented as of this encounter Plan of Treatment Not on file documented as of this encounter Procedures Procedure Name Priority Date/Time Associated Diagnosis Comments DERMATOPATHOLOGY Routine 12/05/2018 12:0 0 AM MEDICAL UNDERWRITER documented in this encounter Results * DERMATOPATHOLOGY (12/05/2018 12:00 AM MEDICAL UNDERWRITER) Case Report Dermatopathology Report Case: [id number] Authorizing Provider: Ayesha Queen MD Collected: 12/05/2018 12:00 AM Pathologist: Danielle Matute MD Received: 12/06/2018 12:01 PM Specimens: A) - Skin, right cheek B) - Skin, mid back 9 3:03 PM CDT DERMATOPATHOLOGY LABORATORY Final Diagnosis Specimen A. SKIN, right cheek: INTRADERMAL MELANOCYTIC NEVUS (D22.39) Specimen B. SKIN, mid back: INTRADERMAL MELANOCYTIC NEVUS (D22.5) 3:03 PM CDT DERMATOPATHOLOGY LABORATORY at 1503 CDT Clinical History A: R/O BCC vs nevus. [place] papule. B: Irritated nevus R/O atypia. Irreg color, brown papule. Family H/O MM. 3:03 PM CDT DERMATOPATHOLOGY LABORATORY Gross Description Specimen A: Received is one formalin filled container labeled with the patient's name and designated right cheek. The specimen consists of a shave measuring 0m7h6cf. Jar 0. Specimen B: Received is one formalin filled container labeled with the patient's name and designated mid back. The specimen consists of a shave measuring 0o4s3lh. Jar 0. 3:03 PM CDT DERMATOPATHOLOGY LABORATORY Microscopic Description Specimen A. SKIN, [...] characteristic determined by the Dermatopathology Laboratory at [facility], directed by Dr. Kristen Sanders. These tests need not be, and therefore are not, approved by the [place] Food and Drug Administration. The tests are used for clinical purposes. Billing Codes Specimen Charges Stain Charges 04101 [id number] 1 1 3:03 PM CDT DERMATOPATHOLOGY LABORATORY Embedded Images 3:03 PM CDT DERMATOPATHOLOGY LABORATORY Pathology/Cytology TISSUE SPECIMEN FROM SKIN / Unknown 12/05/2018 12/06/2018 12:01 PM MEDICAL UNDERWRITER Miscellaneous samples (specimen) TISSUE SPECIMEN FROM SKIN / Unknown 12/05/2018 12/06/2018 12:01 PM MEDICAL UNDERWRITER Ayesha Queen MD LAB - PATHOLOGY/CYTOLOGY ORD ERABLES Final Result DERMATOPATHOLOGY LABORATORY [facility] - Department of Dermatology [address] [place] [address], 5th Floor Lab [address] [phone] documented in this encounter Visit Diagnoses Not on filedocumented in this encounter Care Teams Coupon Clerk Relationship Specialty Start Date End Date Moises Richard MD [address] [place] [phone] PCP - General 12/05/18 documented as of this encounter
[2025-05-04 16:45] VITALS: BP 123/62; PULSE 73; RESP 16; TEMP 36.6; O2SAT 99
--- OUTSIDE RECORDS SUMMARY | 2025-05-04 19:46 | XMS_ITS | Clinical Summary ---
Author Organization [facility] [employer] Address [address] [facility] [place] [address] Care Team Providers Care Communications Equipment Installer Name Role Phone Moises Richard MD Primary Care Provider [phone]- [phone] Source Comments [facility] [employer],non-owned Affiliates and Associated Physician Practices is amultiple site organization consisting of ambulatory clinics and hospital sitesin [place], [place], [place] and [place]. This disclosure is being madepursuant to the Care Everywhere program and may not contain all information available regarding this patient. Last updated 18.[facility] [employer] Social History Tobacco Use Types Packs/Day Years Used Date Smoking Tobacco: Never Assessed Comments Unknown Sex and Gender Information Value Date Recorded Sex Assigned at Not on file Legal Sex Female 10:21 AM MANAGER ANALYSIS Gender Identity Not on file Sexual Orientation [...] complete this topic Insurance ANTH Care Teams Communications Equipment Installer Relationship Specialty Start Date End Date Moises Richard MD [address] [place] [phone] PCP - General 12/05/18
--- OUTSIDE RECORDS SUMMARY | 2025-05-04 19:46 | XMS_ITS | Encounter Summary ---
Author Organization [facility] Address [address] [place] [address] Care Team Providers Care Boatswains Mate Name Role Phone Moises Richard MD Primary Care Provider [phone]- [phone] Encounter Details Date Type Department Care Team (Late st Contact Info) Description 12/06/2018 Lab Requisition [facility] [address] [place] [id number] Ayesha Queen MD [address] [facility] [address] [place] [address] Social History Tobacco Use Types Packs/Day Years Used Date Smoking Tobacco: Never Assessed Comments Unknown Sex and Gender Information Value Date Recorded Sex Assigned at Not on file Legal Sex Female 10:21 AM DISTANCE EDUCATION DIRECTOR Gender Identity Not on file Sexual Orientation Not on file documented as of this encounter Plan of Treatment Not on file documented as of this encounter Procedures Procedure Name Priority Date/Time Associated Diagnosis Comments DERMATOPATHOLOGY Routine 12/05/2018 12:0 0 AM DISTANCE EDUCATION DIRECTOR documented in this encounter Results * DERMATOPATHOLOGY (12/05/2018 12:00 AM DISTANCE EDUCATION DIRECTOR) Case Report Dermatopathology Report Case: [id number] Authorizing Provider: Ayesha Queen MD Collected: 12/05/2018 [...] Clinical History A: R/O BCC vs nevus. [place] papule. B: Irritated nevus R/O atypia. Irreg color, brown papule. Family H/O MM. 3:03 PM CDT DERMATOPATHOLOGY LABORATORY Gross Description Specimen A: Received is one formalin filled container labeled with the patient's name and designated right cheek. The specimen consists of a shave measuring [id number]. Jar 0. Specimen B: Received is one formalin filled container labeled with the patient's name and designated mid back. The specimen consists of a shave measuring [id number]. Jar 0. 3:03 PM CDT DERMATOPATHOLOGY LABORATORY [...] characteristic determined by the Dermatopathology Laboratory at [facility], directed by Dr. Kristen Sanders. These tests need not be, and therefore are not, approved by the [place] Food and Drug Administration. The tests are used for clinical purposes. Billing Codes Specimen Charges Stain Charges 91755 [id number] 1 1 3:03 PM CDT DERMATOPATHOLOGY LABORATORY Embedded Images 3:03 PM CDT DERMATOPATHOLOGY LABORATORY Pathology/Cytology TISSUE SPECIMEN FROM SKIN / Unknown 12/05/2018 12/06/2018 12:01 PM DISTANCE EDUCATION DIRECTOR Miscellaneous samples (specimen) TISSUE SPECIMEN FROM SKIN / Unknown 12/05/2018 12/06/2018 12:01 PM DISTANCE EDUCATION DIRECTOR Ayesha Queen MD LAB - PATHOLOGY/CYTOLOGY ORD ERABLES Final Result DERMATOPATHOLOGY LABORATORY [facility] - Department of Dermatology [address] [place] [address], 5th Floor Lab [address] [phone] documented in this encounter Visit Diagnoses Not on filedocumented in this encounter Care Teams Boatswains Mate Relationship Specialty Start Date End Date Moises Richard MD [address] [place] [id number] PCP - General 12/05/18 documented as of this encounter
--- OUTSIDE RECORDS SUMMARY | 2025-05-04 19:46 | XMS_ITS | Clinical Summary ---
Author Organization [facility] Address [address], [address] [address] Phone Care Team Providers Care Nail Sticker Name Role Phone Moises Richard MD Primary Care Provider +1- [phone] Juan Mancuso DO Unavailable Allergies Active Allergy Reactions Criticality Noted Date [...] Recently Relevant to Health Maintenance Care Teams Nail Sticker Relationship Specialty Start Date End Date Moises Richard MD [address] [place] [address] [address] [place] [address] PCP - General Family Medicine 01/31/16 Juan Mancuso DO [address] [place] [address] [address] [place] [address] Gastroenterology 01/31/16
--- NOTE | 2025-05-04 20:04 | ED.WOUNDLAC ---
HPI - Wound/Laceration General Chief Complaint: Wound/Laceration Stated Complaint: L pointer finger lac Time Seen by Provider: 05/04/25 19:41 Source: patient and family Mode of arrival: ambulatory Limitations: no limitations History of Present Illness HPI narrative: [id number] 59-year-old female presents with an accidental laceration to her left 2nd digit. She states she has mastered beaking gluten free sever toe bread and she was cutting a loaf of this when the knife slipped. She denies that this was intentional acts of self-harm. She has not yet taken anything for pain. Not on anticoagulation. Confirm she has primary care physician. She reports that after was wrapped in triage she states that it is slightly numb, pain only 0 to 1/10 in severity. Related Data Home Medications ?Medication ?Instructions ?Recorded ?Confirmed ?Last Taken ?Type cholecalciferol (vitamin D3) 25 25 mcg PO DAILY 08/24/21 01/20/25 01/19/25 History mcg (1,000 unit) capsule mecobalamin (vitamin B12) 1,000 1,000 mcg sublingual DAILY 08/24/21 01/20/25 01/19/25 History mcg disintegrating tablet,sublingual Allergies Allergy/AdvReac Type Severity Reaction Status Date / Time adhesive Allergy Severe BLISTERS Verified 05/04/25 16:49 TO TAPE avocado Allergy Severe Hives Verified 05/04/25 16:49 erythromycin base Allergy Unknown Unknown Verified 05/04/25 16:49 fluconazole Allergy Unknown allergic Verified 05/04/25 16:49 gluten Allergy Unknown stomach Verified 05/04/25 16:49 pains morphine Allergy Unknown Unknown Verified 05/04/25 16:49 Sulfa (Sulfonamide Allergy Unknown Unknown Verified 05/04/25 16:49 Antibiotics) sulfanilamide Allergy Unknown Unknown Verified 05/04/25 16:49 PMFSH Past Medical History Medical History Right hand dominant IT band syndrome MICHELLE positive neg JACQUES BPV (benign positional vertigo) Surgical History Surgical History S/P carpal tunnel release left H/O: hysterectomy (~2008) has Ovaries History of (~1998) History of (~2000) S/P cholecystectomy (~12/17/94) Family History Family History Mother Family history of thyroid disease Hypertension Family history of cardiovascular disease Father Diabetes mellitus Hypertension Family history of cardiovascular disease Sibling Diabetes mellitus Depression Hypertension Family history of malignant melanoma Hudson's disease Anxiety Cerebrovascular accident History of high cholesterol Grandparent Family history of malignant neoplasm Family history of malignant melanoma Other Family history of alcoholism Family history of arthritis Family history of malignant neoplasm of bone Family history of mental disorder Social History Social History Smoking status: Never smoker Alcohol intake: never Substance use: never Substance use type: does not use Lack of Transportation: No Lack of Food: Never True Current Housing: I Have Housing Concerned About Future Housing: No Difficulty Paying Gas/Electric Bills: No Difficulty Paying for Meds: No Currently Unemployed: No Education: Master's Degree or Higher Difficulty w/ Childcare or Family Care: No Living arrangements: with family Occupation/Education: occupation 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 HEAD: Normocephalic, atraumatic. EYES: Non injected, non icteric ENT: Nares clear, no rhinorrhea or epistaxis. Gross auditory acuity intact. NECK: Supple. No meningismus. CHEST: Speaking in full sentences. No respiratory distress. HEART: Regular rate and rhythm. Brisk capillary refill. ABDOMEN: Soft, nondistended. No rigidity or guarding. Not peritoneal EXTREMITIES: Normal range of motion. No edema. SKIN: Warm, dry. 1cm slightly jagged laceration along lateral aspect of left 2nd digit distal to the DIP, laceration seems to extend to the paronychia and the nail does have a superficial indentation near/at the lunula but without ric laceration or subungal hematoma. Bleeding well controlled at the laceration which is somewhat superficial. NEURO: No focal deficits. Alert and oriented. Answering questions. Following commands. Normal speech without aphasia or dysarthria. Patient is able to demonstrate flexion extension with the D IP isolated. Sensation is intact to touch along pad of affect digit as well as bilateral lateral aspects. PSYCH: Normal mood and affect. Course Vital Signs Vital signs: Vital Signs Temperature 97.8 F 05/04/25 16:45 Pulse Rate 73 05/04/25 16:45 Respiratory Rate 16 05/04/25 16:45 Blood Pressure 123/62 05/04/25 16:45 Pulse Oximetry 99 05/04/25 16:45 Oxygen Delivery Room Air 05/04/25 16:45 Temperature 97.8 F 05/04/25 16:45 Pulse Rate 73 05/04/25 16:45 Respiratory Rate 16 05/04/25 16:45 Blood Pressure 123/62 05/04/25 16:45 Pulse Oximetry 99 05/04/25 16:45 Oxygen Delivery Room Air 05/04/25 16:45 Procedures Laceration Laceration 1: Date: 05/04/25 Time: 20:15 Site: upper extremity Side (If applicable): left Size (cm): 1 Description: irregular Depth: simple, single layer Local Anesthetic: none Pre-repair: wound explored and irrigated ====== Skin Level ====== Skin layer closed with: dermabond ====== Subcutaneous Layer ====== ====== Muscle Layer ====== ====== Tendon Layer ====== MDM - Wound/Laceration MDM Narrative Medical decision making narrative: Pjsrb-[id number] female presents with left 2nd digit laceration sustained while cutting bread. In the emergency department they are afebrile with vital signs within normal limits. Patient could not recall last tetanus shot so updated. Will defer imaging as this was a kitchen knife injury and relatively superficial, well irrigated with low suspicion for retained foreign body. Laceration repair with Dermabond as above. Tolerated well. Discharged in stable condition. Differential Diagnosis Differential diagnosis: Likely laceration, avulsion of skin and other (Low suspicion for underlying foreign body; considered nail/nail bed injury) Discharge Plan Discharge Clinical Impression: Laceration of finger of left hand Patient Disposition: Home Condition: Stable Instructions: Antibiotic Form, Laceration (ED), Skin Adhesive Care (ED) Additional Instructions: Acetaminophen/Tylenol (maximum 4000 mg per day) is safe to take with NSAIDs (ibuprofen/Motrin) for pain relief. As we discussed, keep the wound clean warm and dry and watch for signs of infection, follow up with PCP and/or return to the ED if so. The skin glue should flake off over the next several days to week or so. No need for applying any topical antibiotics or hydrogen peroxide or other cleansers. Keep the area clean warm and dry. Can use warm soapy water starting tomorrow but make sure fully dry before applying a bandage. Your tetanus was updated today. Patient Language: [place] Prescriptions: New acetaminophen 500 mg capsule 1,000 mg PO Q6H PRN (Reason: pain) Qty: 20 0RF ibuprofen 600 mg tablet 600 mg PO TID PRN (Reason: pain) Qty: 20 0RF No Action cholecalciferol (vitamin D3) 25 mcg (1,000 unit) capsule 25 mcg PO DAILY Patient Comments: two tablets daily mecobalamin (vitamin B12) 1,000 mcg tablet,disintegrating 1,000 mcg sublingual DAILY Patient Comments: every other day Rx Instructions: place tablet under tongue and allow to dissolve for at least30 secs before swallowing Follow-up/Referrals: Moises Richard MD [Primary Care Provider] - Stand Alone Forms: Work/School Release IP Time of Disposition: 20:43
[2025-05-04] MEDS: TETANUS,DIPHTHERIA,AC PERTUSSIS ADULT (0.5 ML) BOOSTRIX IM (20:40)
[2025-05-04 20:43] VITALS: BP 119/69; PULSE 72; RESP 20; TEMP 36.7; O2SAT 100
== END 2025-05-04 20:50 | disposition home or self-care (01) ==
PROVIDERS: Emergency Provider Student in an Organized Health Care Education/Training Program; PCP Family Medicine
DX: S61.211A Laceration without foreign body of left index finger without damage to nail, initial encounter (principal); W26.0XXA Contact with knife, initial encounter
CPT/HCPCS: 12001; 90471; 90715; 99283